=== PATIENT | female | born 1970 | race African-American/Black ===

== ENCOUNTER → 2017-12-18 | Outpatient (CLI) | payer BC ==
--- NOTE | 2017-12-18 09:37 | Diagnostic Imaging Report ---
PROCEDURE:THORACIC SPINE 2VW COMPARISON:None. INDICATIONS:BACK PAIN FINDINGS:No acute, displaced fracture or subluxation. No destructive lesion. Alignment is normal. Intervertebral disc spaces are well-maintained. The paraspinal soft tissues appear normal. CONCLUSION: No acute osseous abnormality. Dictated by: Clarke Hightower M.D. on 12/18/2017 at 9:41 Electronically approved by: Clarke Hightower M.D. on 12/18/2017 at 9:41
== END ==
LOC: RAD 08:44
PROVIDERS: ATTEND Family Medicine
DX: M54.6 Pain in thoracic spine (principal)
CPT/HCPCS: 72070

== ENCOUNTER → 2018-04-29 | Outpatient (CLI) | payer BC ==
--- NOTE | 2018-04-29 13:07 | Diagnostic Imaging Report ---
Thyroid ultrasound History: Hyperthyroidism Comparison: None Findings: The thyroid appears enlarged and diffusely heterogeneous in appearance with increased vascularity. The right lobe measures 5.8 x 2.8 x 2.9 cm. The left lobe measures 5.9 x 3.2 x 2.9 cm. The isthmus measures 0.8 cm. Right Lobe: No cystic mass or discrete solid nodule identified. Left Lobe: There is a 0.9 x 0.7 x 0.9 cm solid nodule in the left upper pole thyroid. There nodule is mildly hypoechoic, with circumscribed margins, and is not taller than wide. The nodule has punctate calcifications. Isthmus: No cystic mass or discrete solid nodule identified. Lymph Nodes: No cervical lymph nodes are identified. IMPRESSION: Enlarged thyroid with heterogeneous appearance and vascularity, which could represent thyroiditis. A 0.9 cm indeterminate solid nodule in the left upper pole thyroid. A follow-up ultrasound is suggested in 12 months to assess for stability. Signed by: Dr. Sneha Fagan MD on 04/29/2018 1:04 PM
== END ==
LOC: US 11:29
PROVIDERS: ATTEND Family Medicine
DX: E05.90 Thyrotoxicosis, unspecified without thyrotoxic crisis or storm (principal)
CPT/HCPCS: 76536